=== PATIENT | female | born 1975 | race Caucasian/White ===

== ENCOUNTER → 2023-07-08 08:35 | Outpatient (REF) | payer OTHER, SELFPAY | LOC: HWWDC 08:35 | PROVIDERS: ATTENDING PHYSICIAN Physician Assistant | DX: Z12.31 Encounter for screening mammogram for malignant neoplasm of breast (principal) | CPT/HCPCS: 77063; 77067 ==

== ENCOUNTER → 2024-03-14 07:47 | Outpatient (REF) | payer OTHER, SELFPAY | LOC: RAD 07:47 | PROVIDERS: ATTENDING PHYSICIAN Internal Medicine; FAMILY PHYSICIAN Physician Assistant | DX: L40.50 Arthropathic psoriasis, unspecified (principal) | CPT/HCPCS: 73502; 73560; 73565; 73610 ==